=== PATIENT | male | born 1970 | race Hispanic/Latino ===

== ENCOUNTER 2019-03-05 18:40 | Emergency (ER) | payer OTHER ==
--- NOTE | 2019-03-05 19:06 | RAD ---
XR Chest 1 View Portable History: Chest pain Comparison: None. Findings: Numerous spherical radiopaque objects project over the chest. Lungs are without confluent a irspace consolidation, pneumothorax, or effusion. No acute osseous abnormality. Impression: No acute intrathoracic abnormality.
[2019-03-05] MEDS ORDERED: Nitroglycerin 2% Ointment 1 INCH/1 GM Packet ONE (19:29)
[2019-03-05 19:35] LABS: #Basophils 0.1 thou/uL (0.0-0.2); #Eosinphils 0.2 thou/uL (0.0-0.7); #Lymphocytes 3.7 thou/uL (1.20-3.40); #Monocytes 0.9 thou/uL (0.11-0.59); %Basophils 0.5 % (0.0-1.0); %Eosinophils 1.9 % (0.0-10.0); %Lymphocytes 37.5 % (21.0-51.0); %Monocytes 8.7 % (0.0-10.0); %Neutrophils 51.4 % (42.0-75.0); Hemoglobin 13.1 g/dL (14.0-18.0); Mean Corpuscular HGB CONC 32.5 g/dL (32.0-36.0); Mean Corpuscular Hemoglobin 29.2 pg (27.0-31.0); Mean Platelet Volume 7.9 fL (7.4-10.4); Platelet Count 255 thou/uL (130-400); Red Blood Cell (RBC) Count 4.48 mill/uL (4.70-6.10); White Blood Cell (WBC) Count 9.8 thou/uL (4.8-10.8)
[2019-03-05 19:35] LABS: Bilirubin Negative (Negative); Blood, Urine Negative (Negative); Clarity Clear (Clear); Glucose, Urine (Dipstick) Normal (Negative); Leukocyte Negative Leu/uL (Negative); Nitrite Negative (Negative); Protein, Urine (Dipstick) Negative (Neg-Trace); Urobilinogen Normal mg/dL (Less than 2)
[2019-03-05 19:56] LABS: ALT (SGPT) 12 U/L (8-55); AST (SGOT) 14 U/L (5-34); Albumin 4.5 g/dL (3.5-5.0); Alkaline Phosphatase 66 U/L (40-110); Anion Gap 11 mmol/L (10-20); BUN (Urea Nitrogen) 8 mg/dL (8.9-20.6); Bilirubin, Total 0.4 mg/dL (0.2-1.2); Calc. Creatinine Clearance 0 mL/min (70-130); Calcium 9.2 mg/dL (7.8-10.44); Carbon Dioxide 30 mmol/L (22-29); Chloride 104 mmol/L (98-107); Estimated GFR-MDRD Greater than 90; Globulin 3.3 g/dL (2.4-3.5); Glucose 117 mg/dL (70-105); Magnesium 1.7 mg/dL (1.6-2.6); Potassium 3.7 mmol/L (3.5-5.1); Protein, Total 7.8 g/dL (6.0-8.3); Sodium 141 mmol/L (136-145)
[2019-03-05] MEDS ORDERED: Morphine 4 MG/ML VIAL ONE (21:04)
== END 2019-03-06 00:57 | disposition short-term general hospital (02) ==
LOC: ERS 18:40
DX: R07.9 Chest pain, unspecified (principal); I25.2 Old myocardial infarction; E11.9 Type 2 diabetes mellitus without complications; E78.5 Hyperlipidemia, unspecified; E78.00 Pure hypercholesterolemia, unspecified; I10 Essential (primary) hypertension; Z79.899 Other long term (current) drug therapy; Z79.84 Long term (current) use of oral hypoglycemic drugs; Z95.5 Presence of coronary angioplasty implant and graft
CPT/HCPCS: 71045; 80053; 81003; 83735; 83880; 84484; 85025; 85379; 93005; 96374; J2270

== ENCOUNTER 2019-03-22 09:18 | Observation (INO) | payer OTHER ==
--- NOTE | 2019-03-22 09:59 | RAD ---
XR Chest 1 View Portable History: Chest pain Comparison: Radiograph March 05, 2019 Findings: Lungs are clear. No pneumothorax or effusion. Multiple spherical radiopacities project over the hemithoraces. Cardiac silhouette and mediastinal contours are within normal limits. No acute osseous abnormality. Impression: No acute intrathoracic abnormality.
[2019-03-22 10:03] LABS: #Basophils 0.1 thou/uL (0.0-0.2); #Eosinphils 0.2 thou/uL (0.0-0.7); #Lymphocytes 3.1 thou/uL (1.20-3.40); #Monocytes 0.7 thou/uL (0.11-0.59); #Neutrophils 9.1 thou/uL (1.40-6.50); %Basophils 0.4 % (0.0-1.0); %Eosinophils 1.3 % (0.0-10.0); %Lymphocytes 23.8 % (21.0-51.0); %Monocytes 5.3 % (0.0-10.0); %Neutrophils 69.1 % (42.0-75.0); Hemoglobin 12.7 g/dL (14.0-18.0); Mean Corpuscular HGB CONC 33.5 g/dL (32.0-36.0); Mean Corpuscular Hemoglobin 30.2 pg (27.0-31.0); Mean Corpuscular Volume 90.1 fL (78.0-98.0); Mean Platelet Volume 7.3 fL (7.4-10.4); Platelet Count 252 thou/uL (130-400); RBC Distribution Width 11.9 % (11.5-14.5); Red Blood Cell (RBC) Count 4.22 mill/uL (4.70-6.10); White Blood Cell (WBC) Count 13.1 thou/uL (4.8-10.8)
[2019-03-22 10:21] LABS: ALT (SGPT) 14 U/L (8-55); AST (SGOT) 13 U/L (5-34); Albumin 4.2 g/dL (3.5-5.0); Alkaline Phosphatase 70 U/L (40-110); Anion Gap 12 mmol/L (10-20); BUN (Urea Nitrogen) 10 mg/dL (8.9-20.6); Bilirubin, Total 0.5 mg/dL (0.2-1.2); Calc. Creatinine Clearance 0 mL/min (70-130); Calcium 9.1 mg/dL (7.8-10.44); Carbon Dioxide 29 mmol/L (22-29); Chloride 102 mmol/L (98-107); Estimated GFR-MDRD 82; Glucose 137 mg/dL (70-105); Potassium 4.5 mmol/L (3.5-5.1); Protein, Total 7.2 g/dL (6.0-8.3); Sodium 138 mmol/L (136-145)
[2019-03-22] MEDS ORDERED: Senokot S 8.6-50 MG TAB PO PRN (13:40)
[2019-03-22] MEDS ORDERED: Acetaminophen 325 MG TAB PO PRN (13:40)
[2019-03-22 13:41] LABS: Troponin I Less than 0.010 ng/mL (< 0.028)
[2019-03-22] MEDS ORDERED: Dextrose 50% Abboject 50 ML SYRINGE SLOW IVP PRN (14:07)
[2019-03-22] MEDS ORDERED: Dextrose 5% in Water 1,000 ML IV PRN (14:07)
[2019-03-22] MEDS ORDERED: HumaLOG 300 UNITS/3 ML VIAL SC PRN (14:07)
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
[2019-03-22 17:32] LABS: CKMB 0.7 ng/mL (0-6.6)
[2019-03-22 19:56] VITALS: BMI 34.9
[2019-03-22] MEDS: Famotidine 20 MG TAB PO SCH (20:36)
[2019-03-23 05:34] LABS: #Basophils 0.1 thou/uL (0.0-0.2); #Eosinphils 0.2 thou/uL (0.0-0.7); #Lymphocytes 4.1 thou/uL (1.20-3.40); #Monocytes 0.9 thou/uL (0.11-0.59); #Neutrophils 4.8 thou/uL (1.40-6.50); %Basophils 1.4 % (0.0-1.0); %Eosinophils 1.8 % (0.0-10.0); %Lymphocytes 40.4 % (21.0-51.0); %Monocytes 9.1 % (0.0-10.0); %Neutrophils 47.2 % (42.0-75.0); Hemoglobin 13.1 g/dL (14.0-18.0); Mean Corpuscular HGB CONC 33.5 g/dL (32.0-36.0); Mean Corpuscular Hemoglobin 30.4 pg (27.0-31.0); Mean Corpuscular Volume 90.6 fL (78.0-98.0); Platelet Count 263 thou/uL (130-400); RBC Distribution Width 12.1 % (11.5-14.5); Red Blood Cell (RBC) Count 4.32 mill/uL (4.70-6.10)
[2019-03-23 06:07] LABS: Anion Gap 14 mmol/L (10-20); BUN (Urea Nitrogen) 10 mg/dL (8.9-20.6); Calc. Creatinine Clearance 173 mL/min (70-130); Calcium 9.1 mg/dL (7.8-10.44); Carbon Dioxide 24 mmol/L (22-29); Cardiac Risk 5.6 (Less than 4.5); Chloride 105 mmol/L (98-107); Cholesterol 157 mg/dl (< 200 Desired); Estimated GFR-MDRD Greater than 90; Glucose 126 mg/dL (70-105); HDL Cholesterol 28 mg/dL (>60 Neg Risk); LDL Cholesterol, Calculated 109 mg/dL; Potassium 3.8 mmol/L (3.5-5.1); Sodium 139 mmol/L (136-145); Triglycerides 101 mg/dL (Less than 150)
[2019-03-23] MEDS: Famotidine 20 MG TAB PO SCH ×2 (08:48→21:50)
[2019-03-23] MEDS: Enoxaparin Sodium 40 MG/0.4 ML SYRINGE SC SCH (08:48)
--- NOTE | 2019-03-23 15:43 | PDOC.HOSPP ---
- Subjective Encounter Date: 03/23/19 Encounter Time: 10:20 Subjective: Pt seen for followup re: chest pain. States he has on and off retrosternal and left sided chest pain. - Objective Vital Signs & Weight: Vital Signs (12 hours) Temp Pulse Resp BP Pulse Ox 03/23/19 11:44 98.5 F 70 14 181/98 H 97 03/23/19 07:26 97.6 F 72 24 H 156/100 H 96 03/23/19 04:14 97.9 F 73 14 138/87 97 Weight Weight 236 lb 6.4 oz I&O: 03/22/19 03/23/19 03/24/19 06:59 06:59 06:59 Intake Total 300 Output Total 675 Balance -375 Result Diagrams: 03/23/19 04:56 03/23/19 04:56 Additional Labs: Accuchecks 03/23/19 03/23/19 03/22/19 10:26 04:59 20:43 POC Glucose 140 H 110 132 H Labs and MARs reviewed by me. EKG Reviewed by me: Yes (Tele; NSR) Hospitalist ROS - Review of Systems Cardiovascular: reports: chest pain. denies: palpitations, orthopnea, paroxysmal noc. dyspnea, edema, light headedness Gastrointestinal: denies: nausea, vomiting, abdominal pain, diarrhea, constipation, melena, hematochezia - Medication Medications: Active Medications Generic Name Dose Route Start Last Admin Trade Name Freq PRN Reason Stop Dose Admin Enoxaparin Sodium 40 mg 03/23/19 09:00 03/23/19 08:48 Lovenox SC Not Given [facility] Famotidine 20 mg 03/22/19 21:00 03/23/19 08:48 Pepcid PO Not Given BID GEORGINA Sodium Chloride 10 ml 03/22/19 13:40 03/22/19 20:37 Flush - Normal Saline IVF 10 ml PRN PRN Administration Saline Flush - Exam General - other findings: Obese Eye: anicteric sclera ENT: moist mucosa Neck: supple Heart: RRR, no rubs Respiratory: CTAB Gastrointestinal: soft, non-tender Extremities: no clubbing Musculoskeletal: normal tone, normal strength Musculoskeletal - other findings: L chest wall tenderness. Psychiatric: normal affect, normal behavior Hosp A/P (1) Chest pain Code(s): R07.9 - CHEST PAIN, UNSPECIFIED Status: Acute (2) HTN (hypertension) Code(s): I10 - ESSENTIAL (PRIMARY) HYPERTENSION Status: Chronic (3) Dyslipidemia Code(s): E78.5 - HYPERLIPIDEMIA, UNSPECIFIED Status: Chronic (4) DM2 (diabetes mellitus, type 2) Status: Acute - Plan L chest wall tenderness. Continue to monitor on telemetry. 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 resume carvedilol and lisinopril, monitor vital signs and titarte antihypertensives as needed. PRN IV hydralazine for blood pressure spikes. Blood sugars reasonably controlled.
[2019-03-23] MEDS ORDERED: Nitroglycerin 0.4 MG TAB (25 Tab Bottle) SL PRN (15:49)
[2019-03-23] MEDS ORDERED: hydrALAZINE 20 MG/ML VIAL SLOW IVP PRN (15:50)
[2019-03-23] MEDS ORDERED: Ketorolac Tromethamine 30 MG/ML VIAL IVP PRN (15:52)
[2019-03-23] MEDS ORDERED: Cyclobenzaprine 10 MG TAB PO PRN (15:52)
[2019-03-23] MEDS ORDERED: Cyclobenzaprine 10 MG TAB PO SCH (16:00)
[2019-03-23] MEDS: glipiZIDE 5 MG TAB PO SCH (17:00)
[2019-03-23] MEDS: metFORMIN 500 MG TAB PO SCH (17:00)
--- NOTE | 2019-03-23 19:21 | CON ---
DATE OF CONSULTATION: REASON FOR CONSULTATION: Chest pain. HISTORY: A 48-year-old inmate of [facility], who recently presented with chest pain. He was seen and evaluated in [facility], where he underwent a noninvasive stress study. Per his account, his stress test was normal. His chest pain continues. It can last for several hours. It occurs both rest and stress. It is relieved by nitroglycerin. He does have a previous history of underlying coronary artery disease. He states he has had 2 stents placed at [facility] in [place] two years ago. This was when he was not incarcerated. PAST MEDICAL HISTORY: As described above including diabetes mellitus, hyperlipidemia, hypertension. SOCIAL HISTORY: No current tobacco or alcohol use. ALLERGIES: NONE. HOME MEDICATIONS: Include metformin, aspirin, atorvastatin, carvedilol, glipizide, isosorbide, lisinopril, and nitroglycerin p.r.n. REVIEW OF SYSTEMS: A 10-point review of systems is reviewed as above, otherwise negative. PHYSICAL EXAMINATION: GENERAL: The patient is a pleasant 48-year-old male, who is in no acute distress. The patient appears their stated age. VITAL SIGNS: Blood pressure 181/98, pulse 70, temperature 98.5. NEUROLOGIC: The patient is alert and oriented x3 with no focal neurologic deficits. HEENT: Sclerae without icterus. Mouth has moist mucous membranes with normal pallor. NECK: No JVD. Carotid upstroke brisk. No bruits bilaterally. LUNGS: Clear to auscultation with unlabored respirations. BACK: No scoliosis or kyphosis. CARDIAC: Regular rate and rhythm with normal S1 and S2. No S3 or S4 noted. No significant rubs, murmurs, thrills, or gallops noted throughout the precordium. PMI is not displaced. There is no parasternal heave. ABDOMEN: Soft, nontender, nondistended. No peritoneal signs present. No hepatosplenomegaly. No abnormal striae. EXTREMITIES: 2+ femoral and 2+ dorsalis pedis pulses. No cyanosis, clubbing, or edema. SKIN: No gross abnormalities. PERTINENT LABORATORY DATA: Hemoglobin 13.1, hematocrit 39.1, white blood cell count 10.0, platelet count 263. Creatinine 0.79. EKG, normal sinus rhythm, nonspecific ST-T wave changes. IMPRESSION: 1. Recurrent chest pain. 2. Coronary artery disease. 3. Status post stent placement. RECOMMENDATIONS: Unfortunately, Mr. May continues to have chest pain. He did have a noninvasive stress study, which was performed recently that was within normal limits. I discussed medical therapy versus coronary angiography. He has opted for coronary angiography. I discussed the procedure in full detail with the patient. The risks of the procedure were also discussed. The risks of the procedure include but are not limited to the following: , stroke, NH, need for emergency surgery, loss of limb, bleeding, and infection, as well as a reaction to the dye causing kidney failure and needing long-term dialysis. I also discussed the risks of PCI to include all of the above including coronary dissection and perforation in addition to acute stent thrombosis and restenosis. All questions about the procedure were answered. Given the above, the patient agreed to proceed with coronary angiography and possible PCI. All questions were answered. Given the above, the patient agreed to proceed with the above procedure. Further recommendations pending the above. Job ID: [id number]
[2019-03-23] MEDS ORDERED: Atorvastatin Calcium 40 MG TAB PO SCH (21:00)
[2019-03-23] MEDS: Carvedilol 6.25 MG TAB PO SCH (21:50)
[2019-03-24] MEDS ORDERED: Heparin (Artline) 1,000 ML ONE (05:33)
[2019-03-24] MEDS: Carvedilol 6.25 MG TAB PO SCH (06:13)
[2019-03-24] MEDS: Famotidine 20 MG TAB PO SCH (06:13)
[2019-03-24] MEDS ORDERED: Nitroglycerin 100MG/250ML BOT 250 ML ONE (06:21)
[2019-03-24] MEDS ORDERED: Heparin 10,000 UNITS/1 ML VIAL ONE (06:21)
[2019-03-24] MEDS ORDERED: Verapamil 5 MG/2 ML VIAL ONE (06:21)
[2019-03-24] MEDS ORDERED: Fentanyl 100 MCG/2 ML VIAL ONE (06:59)
[2019-03-24] MEDS ORDERED: Midazolam HCl 2 mg/2 ml Vial ONE (06:59)
[2019-03-24] MEDS ORDERED: Nitroglycerin 0.4 MG TAB (25 Tab Bottle) SL PRN (08:39)
[2019-03-24] MEDS ORDERED: Sodium Chloride 0.9% 200 ML IV PRN (08:39)
[2019-03-24] MEDS ORDERED: Acetaminophen/Codeine 30-300mg Tablet PO PRN ×2 (08:39)
[2019-03-24] MEDS ORDERED: Sodium Chloride 0.9% 1,000 ML IV SCH (08:45)
[2019-03-24] MEDS: metFORMIN 500 MG TAB PO SCH (08:46)
--- NOTE | 2019-03-24 08:56 | PRG ---
DATE OF SERVICE: SUBJECTIVE: Mr. May recently underwent coronary angiography. He was found to have a moderate disease of the proximal portion of the LAD in addition to severe stenosis of the ostium of the intermediate ramus branch and proximal portion of the intermediate ramus branch. This was not approachable percutaneously. He also has severe stenosis of the ostium of the marginal branch. RECOMMENDATION: 1. From a CV standpoint, we would recommend continue medical therapy. Agree with adding Imdur 30 mg one p.o. q.a.m. Can increase to 120 over time if needed. We will also consider Ranexa. 2. I did discuss with Mr. May if his pain continues, he may need to go down to [facility] for bypass surgery. I would recommend bypassing the LAD intermediate ramus branch. This will be for pain management control and not for morbidity or mortality improvement. At this point, it does not appear he has significant medical treatment as an antianginal. Otherwise, I have no further recommendations. It would be okay from my standpoint to discharge home this afternoon. Job ID: [id number]
[2019-03-24] MEDS ORDERED: Aspirin 81 mg Enteric Coated Tablet PO SCH (09:00)
[2019-03-24] MEDS ORDERED: Lisinopril 10 MG TAB PO SCH (09:00)
[2019-03-24] MEDS ORDERED: Isosorbide Mononitrate (ER) 30 MG TAB PO SCH (09:00)
[2019-03-24] MEDS: Enoxaparin Sodium 40 MG/0.4 ML SYRINGE SC SCH (09:10)
[2019-03-24] MEDS: glipiZIDE 5 MG TAB PO SCH (09:10)
[2019-03-24] MEDS ORDERED: Iopamidol 370 76% 100 ML VIAL ONE (10:54)
[2019-03-24 12:14] VITALS: BP 136/81; TEMP 97.8
--- NOTE | 2019-03-25 06:47 | DIS ---
DATE OF ADMISSION: 03/22/2019 DATE OF DISCHARGE: 03/24/2019 PRIMARY CARE PROVIDER: Unknown. DISCHARGE DIAGNOSES: 1. Chest pain. 2. Coronary artery disease. CONDITION: Condition of the patient on the day of discharge: Stable. I assessed Mr. May on the day of discharge. He reports that chest pain is better. Vital signs are stable. S1 and S2 are heard, regular. Lungs are clear to auscultation bilaterally. CONSULTATIONS DURING THIS HOSPITALIZATION: Cardiology, Dr. Hoskins. DISCHARGE MEDICATIONS: 1. Nitroglycerin 0.4 mg sublingually every 5 minutes as needed. 2. Aspirin 81 mg daily. 3. Lipitor 40 mg at bedtime. 4. Coreg 6.25 mg 2 times a day. 5. Glipizide 5 mg 2 times a day. 6. Isosorbide mononitrate 30 mg daily. 7. Lisinopril 10 mg daily. 8. Metformin 1000 mg 2 times a day, to be resumed on March 26, 2019. 9. Ranexa 500 mg 2 times a day. HOSPITAL COURSE: Mr. May is a pleasant 48-year-old gentleman, who was admitted to [facility] on March 22, 2019, for chest pain. He was seen by Cardiology Service. He underwent cardiac catheterization. The official cath report is pending at the time of discharge. Cardiology Service recommended continuing medical therapy. His Imdur dose can be increased to 120 mg daily over time if needed. He was also started on Ranexa. Cardiology Service reports that if his pain continues, he may need to go to [facility] for bypass surgery. He recommends bypassing the LAD, intermediate ramus branch for pain management control and not for morbidity or mortality improvement. The patient is being discharged back to [facility] in a stable condition. POST-ACUTE CARE FOLLOWUP: With primary care provider in 1 day. DIET: Diabetic and heart healthy. ACTIVITY: As tolerated. Many thanks for allowing me to participate in your patient's care. Please feel free to contact me with any questions or concerns. DISCHARGE DESTINATION: [facility]. Job ID: [id number]
== END 2019-03-24 15:06 ==
LOC: ERS 09:18 → ERHOLD 11:40 → 2SW 19:53
PROVIDERS: ADMIT Internal Medicine; ATTEND Internal Medicine
PROC: 4A023N7 Measurement of Cardiac Sampling and Pressure, Left Heart, Percutaneous Approach (ICD-10-PCS; principal; 2019-03-22)
PROC: B201YZZ Plain Radiography of Multiple Coronary Arteries using Other Contrast (ICD-10-PCS; 2019-03-22)
PROC: B205YZZ Plain Radiography of Left Heart using Other Contrast (ICD-10-PCS; 2019-03-22)
DX: R07.9 Chest pain, unspecified (principal); I25.10 Atherosclerotic heart disease of native coronary artery without angina pectoris; E11.9 Type 2 diabetes mellitus without complications; I10 Essential (primary) hypertension; E78.5 Hyperlipidemia, unspecified; Z95.5 Presence of coronary angioplasty implant and graft; Z79.82 Long term (current) use of aspirin; Z79.899 Other long term (current) drug therapy; Z79.84 Long term (current) use of oral hypoglycemic drugs
CPT/HCPCS: 36415; 36416; 71045; 80048; 80053; 80061; 82553; 84443; 84484; 85025; 93005; 93306; 93458; 96360; 96361; 96372; C1769; G0378; J1644; J1650; J2250; J3010; Q9967

== ENCOUNTER 2019-03-30 18:47 | Observation (INO) | payer OTHER ==
[2019-03-30 19:36] LABS: #Eosinphils 0.2 thou/uL (0.0-0.7); #Lymphocytes 3.9 thou/uL (1.20-3.40); #Monocytes 0.7 thou/uL (0.11-0.59); #Neutrophils 4.5 thou/uL (1.40-6.50); %Basophils 0.1 % (0.0-1.0); %Eosinophils 2.1 % (0.0-10.0); %Lymphocytes 42.1 % (21.0-51.0); %Monocytes 7.7 % (0.0-10.0); %Neutrophils 48.1 % (42.0-75.0); Mean Corpuscular HGB CONC 34.3 g/dL (32.0-36.0); Mean Corpuscular Hemoglobin 30.7 pg (27.0-31.0); Mean Corpuscular Volume 89.6 fL (78.0-98.0); Mean Platelet Volume 7.8 fL (7.4-10.4); Platelet Count 260 thou/uL (130-400); RBC Distribution Width 11.9 % (11.5-14.5); Red Blood Cell (RBC) Count 4.23 mill/uL (4.70-6.10); White Blood Cell (WBC) Count 9.2 thou/uL (4.8-10.8)
--- NOTE | 2019-03-30 19:47 | RAD ---
AP CHEST: 03/30/19 HISTORY: Chest pain. Lungs are clear. No infiltrate or vascular congestion. Heart size is within normal range. Metallic BB s again seen overlying the chest. No change from prior exam. IMPRESSION: No acute findings. POS: OFF
[2019-03-30 20:00] LABS: ALT (SGPT) 13 U/L (8-55); AST (SGOT) 13 U/L (5-34); Albumin 4.3 g/dL (3.5-5.0); Alkaline Phosphatase 70 U/L (40-110); Anion Gap 9 mmol/L (10-20); BUN (Urea Nitrogen) 8 mg/dL (8.9-20.6); Bilirubin, Total 0.5 mg/dL (0.2-1.2); CK (CPK) 103 U/L (30-200); Calc. Creatinine Clearance 0 mL/min (70-130); Calcium 9.3 mg/dL (7.8-10.44); Carbon Dioxide 32 mmol/L (22-29); Chloride 104 mmol/L (98-107); Estimated GFR-MDRD Greater than 90; Globulin 3.1 g/dL (2.4-3.5); Glucose 105 mg/dL (70-105); Potassium 3.7 mmol/L (3.5-5.1); Protein, Total 7.4 g/dL (6.0-8.3); Sodium 141 mmol/L (136-145)
[2019-03-30 23:33] LABS: Troponin I Less than 0.010 ng/mL (< 0.028)
[2019-03-31] MEDS ORDERED: HumaLOG 300 UNITS/3 ML VIAL SC PRN (00:34)
[2019-03-31] MEDS ORDERED: Dextrose 5% in Water 1,000 ML IV PRN (00:34)
[2019-03-31] MEDS ORDERED: Acetaminophen 325 MG TAB PO PRN (00:34)
[2019-03-31] MEDS ORDERED: Dextrose 50% Abboject 50 ML SYRINGE SLOW IVP PRN (00:34)
[2019-03-31] MEDS ORDERED: Nitroglycerin 0.4 MG TAB (25 Tab Bottle) SL PRN (00:34)
[2019-03-31] MEDS ORDERED: HYDROcodone/Acetaminophen 5/325 mg Tablet PO PRN (00:34)
[2019-03-31] MEDS ORDERED: Ondansetron PF 4 MG/2 ML Vial IVP PRN (00:34)
[2019-03-31] MEDS ORDERED: Morphine 2 MG/ML SYRINGE SLOW IVP PRN (00:37)
[2019-03-31] MEDS ORDERED: hydrALAZINE 20 MG/ML VIAL SLOW IVP PRN (00:37)
[2019-03-31] MEDS ORDERED: Naproxen 500 MG TAB PO SCH ×2 (01:00→09:00)
--- NOTE | 2019-03-31 02:11 | HP ---
PRESENTING COMPLAINT: Left-sided chest pain. HISTORY OF PRESENT ILLNESS: Demetri May is a 48-year-old male, who is currently an inmate with past medical history of hypertension, diabetes mellitus, hyperlipidemia, coronary artery disease status post recent cardiac cath 4 days ago with finding of noncritical stenosis in the cardiac vessels, but exact measurement not signify on the report. The patient was discharged and recommended to start ranolazine, but the patient states since being back in the nursing home, he was not started on the new medication. He continued to have intermittent left-sided chest pain. He describes the pain as more of a sharp, stabbing, located over the rib margin, and appeared to be worse with activity or movement. He states pain also appeared to be worsened with deep breathing. He had an episode today and he was brought in for further evaluation. Cardiology was consulted and has recommended the patient be observed over the next 24 hours. The patient admits to recent cough with rhinorrhea. He has a history of coronary artery disease with previous PCIs and last stent was 2 years ago. PAST MEDICAL HISTORY: Hypertension, diabetes mellitus. PAST SURGICAL HISTORY: Status post PCI. SOCIAL HISTORY: The patient is currently an inmate. Admits to alcohol use. Denies any tobacco or illicit drug use. FAMILY HISTORY: Significant for coronary artery disease in the mother. ALLERGIES: NO KNOWN DRUG ALLERGY. HOME MEDICATIONS: Include: 1. Plavix. 2. Coreg. 3. Metformin. 4. Glipizide. 5. Isosorbide as well as Lipitor. 6. Lisinopril. REVIEW OF SYSTEMS: All systems reviewed x14 were negative except as mentioned above. PHYSICAL EXAMINATION: CURRENT VITALS: Blood pressure of 124/86, pulse of 76, respiratory rate of 18, O2 saturation of 95% on room air. GENERAL: Obese, middle-aged male, in wrists handcuffs, not in any distress. HEENT: Pupils equal, reactive to light. Moist oral mucosa. NECK: No JVD. No carotid bruit. RESPIRATORY: Good air entry bilaterally. No crepitations. CARDIOVASCULAR: S1, S2. Reproducible left sided to left rib margin tenderness. Tenderness seems to be more prominent over the midclavicular line. ABDOMEN: Full, soft, nontender. Bowel sounds positive. EXTREMITIES: No calf tenderness. No pedal edema. NEURO: Patient is alert, oriented. Cranial nerves 2 through 12 grossly intact. LABORATORY DATA: EKG shows normal sinus rhythm at 79 beats per minute, no ST-segment changes. WBC 9.2, hemoglobin 13, neutrophils 48%, platelets 260. Potassium 3.7, bicarb 32, BUN 8, creatinine 0.8, glucose 236, alkaline phosphatase normal. Troponin less than 0.01 x2. Chest x-ray shows no acute findings, no infiltrate, metallic again seen overlying the chest. IMPRESSION: 1. Recurrent atypical chest pain. 2. Hypertension. 3. Diabetes mellitus. PLAN: We will admit the patient to observation. We will consult Cardiology. Given atypical pattern of the chest pain as well as pleuritic nature, we add naproxen. Continue aspirin, Plavix. We will restart ranolazine, which patient was previously not getting at the nursing home. We will continue to monitor serial cardiac enzymes. If they are negative, patient can be discharged with need to restart ranolazine written out in his discharge papers. Continue glipizide and metformin. Start insulin sliding scale with Accu-Cheks while inpatient. We will do Lovenox for DVT prophylaxis. Advance directive, patient is a full code. Total time spent in review of record, discussion with the patient and evaluation greater than 60 minutes. Job ID: [id number]
[2019-03-31 02:16] LABS: #Basophils 0.1 thou/uL (0.0-0.2); #Eosinphils 0.2 thou/uL (0.0-0.7); #Lymphocytes 3.9 thou/uL (1.20-3.40); #Monocytes 0.9 thou/uL (0.11-0.59); #Neutrophils 3.9 thou/uL (1.40-6.50); %Basophils 1.2 % (0.0-1.0); %Eosinophils 2.6 % (0.0-10.0); %Lymphocytes 42.9 % (21.0-51.0); %Monocytes 9.9 % (0.0-10.0); %Neutrophils 43.3 % (42.0-75.0); Hemoglobin 12.9 g/dL (14.0-18.0); Mean Corpuscular Hemoglobin 31.5 pg (27.0-31.0); Mean Platelet Volume 7.6 fL (7.4-10.4); Platelet Count 242 thou/uL (130-400)
[2019-03-31 02:40] LABS: Anion Gap 13 mmol/L (10-20); BUN (Urea Nitrogen) 9 mg/dL (8.9-20.6); Calc. Creatinine Clearance 0 mL/min (70-130); Calcium 9.4 mg/dL (7.8-10.44); Carbon Dioxide 29 mmol/L (22-29); Chloride 104 mmol/L (98-107); Estimated GFR-MDRD Greater than 90; Glucose 165 mg/dL (70-105); Potassium 3.5 mmol/L (3.5-5.1); Sodium 142 mmol/L (136-145)
[2019-03-31 02:42] LABS: Troponin I Less than 0.010 ng/mL (< 0.028)
[2019-03-31 04:36] VITALS: BMI 34.7
[2019-03-31] MEDS: glipiZIDE 5 MG TAB PO SCH ×2 (08:45→16:35)
[2019-03-31] MEDS: metFORMIN 500 MG TAB PO SCH ×2 (08:45→16:35)
[2019-03-31] MEDS ORDERED: Clopidogrel Bisulfate 75 MG TAB PO SCH (09:00)
[2019-03-31] MEDS ORDERED: Carvedilol 6.25 MG TAB PO SCH (09:00)
[2019-03-31] MEDS ORDERED: Aspirin 81 mg Enteric Coated Tablet PO SCH (09:00)
[2019-03-31] MEDS ORDERED: Enoxaparin Sodium 40 MG/0.4 ML SYRINGE SC SCH (09:00)
[2019-03-31] MEDS ORDERED: Lisinopril 10 MG TAB PO SCH (09:00)
[2019-03-31] MEDS ORDERED: Isosorbide Mononitrate (ER) 30 MG TAB PO SCH (09:00)
[2019-03-31] MEDS ORDERED: FLU VACC QS2019-20(6MOS UP)/PF 60 MCG/0.5 ML SYRINGE IM ONE (09:00)
[2019-03-31] MEDS ORDERED: Aspirin 325 mg Enteric Coated Tablet PO SCH (09:00)
[2019-03-31 09:39] LABS: Troponin I 0.014 ng/mL (< 0.028)
[2019-03-31 16:04] VITALS: BP 131/92; TEMP 98.6
[2019-03-31] MEDS ORDERED: Atorvastatin Calcium 40 MG TAB PO SCH (21:00)
--- NOTE | 2019-04-01 09:39 | DIS ---
DATE OF ADMISSION: 03/31/2019 DATE OF DISCHARGE: 03/31/2019 DISCHARGE DIAGNOSES: 1. Chest pain, atypical. Resolved. 2. Coronary artery disease, medically managed. 3. Hypertension, stable. 4. Diabetes mellitus type 2, stable. 5. Hyperlipidemia. CONSULTATIONS: Dr. Hoskins with Cardiology Service. PERTINENT LAB AND X-RAY FINDINGS: Complete metabolic profile within normal limits. Troponin I negative x3. CBC within normal limits. Portable chest x-ray dated 03/30/2019, showed no acute cardiopulmonary process. HOSPITAL COURSE: The patient was observed after initially presenting with chest pain in the context of known coronary artery disease, medically managed with aspirin, Imdur, Coreg, and lisinopril. Serial cardiac biomarkers were performed and negative x3. Telemetry monitoring showed no evidence of acute arrhythmia or dysrhythmia. The patient with recent cardiac catheterization showing minimal coronary artery disease with recommendations for ongoing medical management. Cardiology with current recommendations to continue medical management with the addition of the Plavix and aspirin for dual antiplatelet therapy. Overall, the patient remained clinically stable during the hospital course, tolerating regular oral intake and voiding appropriately. I have examined the patient at the time of discharge and discussed followup instructions. The patient overall clinically stable and ready for discharge on 03/31/2019. DISCHARGE MEDICATIONS: 1. Enteric-coated aspirin 81 mg p.o. daily. 2. Lipitor 40 mg p.o. at bedtime. 3. Coreg 6.25 mg p.o. b.i.d. 4. Glipizide 5 mg p.o. b.i.d. 5. Isosorbide mononitrate 30 mg p.o. daily. 6. Lisinopril 10 mg p.o. daily. 7. Nitroglycerin 0.4 mg sublingually q.5 minutes p.r.n. chest pain. 8. Plavix 75 mg p.o. daily. 9. Metformin 1000 mg p.o. b.i.d. 10. Ranexa 500 mg p.o. b.i.d. FOLLOWUP: The patient will follow up with his primary care provider at the [facility] [employer]. CONDITION ON DISCHARGE: Stable. ACTIVITY: Ad-aleksandar. DIET: Heart healthy and ADA. CODE STATUS: Full. DISPOSITION: Home, [facility] [employer] on 03/31/2019. Job ID: [id number]
== END 2019-03-31 17:03 ==
LOC: ERS 18:47 → 2SW 03-31 00:03
PROVIDERS: ADMIT Internal Medicine; ATTEND Internal Medicine
DX: R07.89 Other chest pain (principal); I10 Essential (primary) hypertension; I25.10 Atherosclerotic heart disease of native coronary artery without angina pectoris; E11.9 Type 2 diabetes mellitus without complications; E78.5 Hyperlipidemia, unspecified; Z79.82 Long term (current) use of aspirin; Z79.84 Long term (current) use of oral hypoglycemic drugs; Z79.899 Other long term (current) drug therapy; Z95.5 Presence of coronary angioplasty implant and graft
CPT/HCPCS: 36415; 36416; 71045; 80048; 80053; 82550; 84484; 85025; 93005; 94760; 96372; G0378; J1650

== ENCOUNTER 2019-04-26 14:57 | Emergency (ER) | payer OTHER ==
--- NOTE | 2019-04-26 18:41 | RAD ---
Chest one view HISTORY: Chest pain. Cough. COMPARISON: 03/30/2019. FINDINGS: Cardiac silhouette is magnified by projection. Pulmonary vasculature are unremarkable. Medi astinum is midline. No lobar consolidation or evidence of pneumothorax. Metallic BBs within the chest appear stable. IMPRESSION: No active cardiopulmonary abnormalities are demonstrated..
[2019-04-26 18:51] LABS: #Basophils 0.1 thou/uL (0.0-0.2); #Eosinphils 0.2 thou/uL (0.0-0.7); #Lymphocytes 2.9 thou/uL (1.20-3.40); #Monocytes 0.9 thou/uL (0.11-0.59); #Neutrophils 5.7 thou/uL (1.40-6.50); %Basophils 0.5 % (0.0-1.0); %Neutrophils 58.5 % (42.0-75.0); Mean Corpuscular HGB CONC 33.9 g/dL (32.0-36.0); Mean Corpuscular Hemoglobin 30.6 pg (27.0-31.0); Platelet Count 243 thou/uL (130-400); RBC Distribution Width 12.1 % (11.5-14.5); Red Blood Cell (RBC) Count 4.24 mill/uL (4.70-6.10); White Blood Cell (WBC) Count 9.8 thou/uL (4.8-10.8)
[2019-04-26 19:25] LABS: ALT (SGPT) 15 U/L (8-55); AST (SGOT) 13 U/L (5-34); Albumin 4.4 g/dL (3.5-5.0); Alkaline Phosphatase 78 U/L (40-110); Anion Gap 12 mmol/L (10-20); BUN (Urea Nitrogen) 11 mg/dL (8.9-20.6); Bilirubin, Total 0.3 mg/dL (0.2-1.2); CK (CPK) 100 U/L (30-200); Calc. Creatinine Clearance 0 mL/min (70-130); Calcium 8.9 mg/dL (7.8-10.44); Carbon Dioxide 29 mmol/L (22-29); Chloride 104 mmol/L (98-107); Estimated GFR-MDRD Greater than 90; Globulin 2.8 g/dL (2.4-3.5); Glucose 114 mg/dL (70-105); Potassium 3.9 mmol/L (3.5-5.1); Protein, Total 7.2 g/dL (6.0-8.3); Sodium 141 mmol/L (136-145)
== END 2019-04-27 00:18 ==
LOC: ERS 17:57 → EEVIPCON 17:57 → ERS 04-27 00:18
DX: R06.00 Dyspnea, unspecified (principal); E11.9 Type 2 diabetes mellitus without complications; E78.5 Hyperlipidemia, unspecified; E78.00 Pure hypercholesterolemia, unspecified; I10 Essential (primary) hypertension; I25.2 Old myocardial infarction; I25.10 Atherosclerotic heart disease of native coronary artery without angina pectoris; Z79.84 Long term (current) use of oral hypoglycemic drugs; Z79.899 Other long term (current) drug therapy; Z79.82 Long term (current) use of aspirin
CPT/HCPCS: 36415; 71045; 80053; 82550; 84484; 85025; 93005